=== PATIENT | female | born 1955 | race Caucasian/White ===

== ENCOUNTER 2017-05-23 10:18 | Inpatient (IN) | payer OTHER ==
[2017-04-30 14:23] VITALS: BMI 37.0
--- NOTE | 2017-04-30 14:54 | PAT Medication Instructions ---
Service Date Apr 30, 2017. Current Home Medication List Albuterol Hfa (Ventolin Hfa), 2 PUFFS INH Q6H PRN for PRN Aspirin (Aspirin Ec), 81 MG PO QAM Atorvastatin (Lipitor), 80 MG PO QAM Citalopram Hydrobromide (Celexa), 20 MG PO QAM Fenofibrate (Tricor ), 145 MG PO QAM Fluticasone Propionate (Nasal) (Flonase Allergy Relief), 2 SPRAYS INTNAS QAM PRN for RN Levothyroxine Sodium (Levothyroxine Sodium), 1 TAB PO QAM Lorazepam (Ativan), 1 MG PO BID PRN for RN Miconazole Nitrate (Topical) (Zeasorb-Af), 1 DOSE TOP DAILY Omeprazole (Prilosec), 40 MG PO QAM Phentermine Hcl (Adipex P), 15 MG PO QAM Triamterene/Hctz (Triamterene/Hctz 37.5-25MG), 1 TAB PO QAM [Lidocaine 4%], 1 DOSE TOP PRN Medication Instructions For Your Scheduled Surgery - Hold the following medications 24 hours prior to surgery: Miconazole Nitrate (Topical) (Zeasorb-Af), 1 DOSE TOP DAILY [Lidocaine 4%], 1 DOSE TOP PRN - Hold the following medications the morning of surgery: Phentermine Hcl (Adipex P), 15 MG PO QAM Triamterene/Hctz (Triamterene/Hctz 37.5-25MG), 1 TAB PO QAM Fenofibrate (Tricor ), 145 MG PO QAM - Take the following medications the morning of surgery with a sip of water OTHERWISE NOTHING TO EAT OR DRINK AFTER MIDNIGHT: Aspirin (Aspirin Ec), 81 MG PO QAM Atorvastatin (Lipitor), 80 MG PO QAM Citalopram Hydrobromide (Celexa), 20 MG PO QAM Levothyroxine Sodium (Levothyroxine Sodium), 1 TAB PO QAM Omeprazole (Prilosec), 40 MG PO QAM Albuterol Hfa (Ventolin Hfa), 2 PUFFS INH Q6H PRN for PRN (use if needed; BRING TO HOSPITAL) Lorazepam (Ativan), 1 MG PO BID PRN Fluticasone Propionate (Nasal) (Flonase Allergy Relief), 2 SPRAYS INTNAS QAM PRN - Take the following medications as scheduled the night before surgery: Albuterol Hfa (Ventolin Hfa), 2 PUFFS INH Q6H PRN for PRN Lorazepam (Ativan), 1 MG PO BID PRN If you have any questions please call us at [phone] or [phone] or [phone]
[2017-04-30 15:39] LABS: BASO % 0.4 %; BASO ABS # 0.03 K/uL (0-0.2); EOS % 7.3 %; EOS ABS # 0.62 K/uL (0-0.5); HEMATOCRIT 41.7 % (37-47); HEMOGLOBIN 13.1 g/dL (12.0-16.0); IG# 0.03 K/uL (0.00-0.02); LYMPH ABS # 2.96 K/uL (1.2-3.4); MEAN CELL VOLUME 78.4 fL (80-100); MEAN CORPUSCULAR HEMOGLOBIN 24.6 pg (25-34); MEAN CORPUSCULAR HGB CONC 31.4 g/dl (32-36); MEAN PLATELET VOLUME 10.5 fL (7.4-10.4); MONO % 6.6 %; MONO ABS # 0.56 K/uL (0.11-0.59); NEUT % 50.3 %; NEUT ABS # 4.26 K/uL (1.4-6.5); PLATELET COUNT 518 K/uL (130-400); RED CELL DISTRIBUTION WIDTH SD 45.8 fL (36.4-46.3); WHITE BLOOD COUNT 8.46 K/uL (4.8-10.8)
[2017-04-30 15:46] LABS: PTT PATIENT 24.2 SECONDS (21.0-31.0)
[2017-04-30 15:52] LABS: CALCIUM 9.9 mg/dl (8.5-10.1); POTASSIUM 3.7 mmol/L (3.5-5.1)
[2017-05-23] VITALS (7 sets, daily range): BP systolic 94–133; BP diastolic 60–90; PULSE 58–92; TEMP 36.3–36.7; O2SAT 92–97; Ht 160 cm; Wt 95.0 kg
[~2017-05-23] VITALS: Ht 160 cm; Wt 95.0 kg
[~2017-05-23 10:18] MED LIST: ASPI81TA28 PO; ATOR-26 PO; ATV/1 PO; CEFAZOLIN 2000MG IV PUSH 10 ML IV SCH; CITA20TA9 PO; FENO145T26 PO; FLUT0.15 INTNAS; LACTATED RINGER'S 1000ML 1,000 ML IV SCH; LEVO25TA5 PO; LIDOCAINE 4% TOP; MICO2POW8 TOP; PHEN37.585 PO; PRLSR20 PO; TRIATAB3 PO; VNTHFA/IN INH
[2017-05-23] MEDS ORDERED: EpHEDrine SULFATE INJ 50 MG/ML AMP IV PRN (10:45)
[2017-05-23] MEDS ORDERED: ONDANSETRON INJ 2 MG/ML 2 ML VIAL IV PRN ×2 (10:45→14:30)
[2017-05-23] MEDS ORDERED: HYDROmorphone INJ 2 MG/ML SYR/VIAL IV PRN (10:45)
[2017-05-23] MEDS ORDERED: ATROPINE SULFATE 0.1 MG/ML 5ML SYR IV PRN (10:45)
[2017-05-23] MEDS ORDERED: FLUMAZENIL 0.1 MG/1 ML 10 ML VIAL IV PRN (10:45)
[2017-05-23] MEDS ORDERED: PHENYLEPHRINE 100MCG/ML 5ML SYR IV PRN (10:45)
[2017-05-23] MEDS ORDERED: LABETALOL HCL IV 5 MG/ML 20ML IV PRN (10:45)
[2017-05-23] MEDS ORDERED: MEPERIDINE HCL 25 MG/ML CARP IV PRN (10:45)
[2017-05-23] MEDS ORDERED: NALOXONE HCL 0.4 MG/1 ML VIAL/CARP IV PRN ×3 (10:45→14:30)
[2017-05-23] MEDS ORDERED: FENTANYL CITRATE INJ 50 MCG/1 ML 2 ML VIAL IV PRN (10:45)
[2017-05-23] MEDS ORDERED: FENTANYL CITRATE INJ 50 MCG/1 ML 2 ML VIAL ONE ×3 (11:44→13:20)
[2017-05-23] MEDS ORDERED: MIDAZOLAM HCL 1 MG/ML 2ML VIAL ONE (11:44)
--- NOTE | 2017-05-23 11:54 | History & Physical Bridge Note ---
H&P Re-Evaluation Bridge Note: I have examined the patient, reviewed the History & Physical and in the interval since the performance of the History & Physical I have noted the following changes of clinical significance: No changes noted
--- NOTE | 2017-05-23 11:57 | History and Physical ---
History & Physical Date May 23, 2017. Chief Complaint Back and leg pain History of Present Illness The patient is a 61 year old female with complaints of back and leg pain Additional History Hepatic Disease: No Endocrine Disorder: No Kidney Disease: No Hypertension: Yes Heart Disease: No Bleeding Tendencies: No Infectious Diseases: No Allergies Coded Allergies: Dog Dander (Verified Allergy, Unknown, DOG/CAT DANDER-ITCHY EYES STUFFY, ) Gemfibrozil (Verified Allergy, Unknown, MUSCLE ACHES, 05/23/17) Hydromorphone (Verified Allergy, Unknown, NAUSEA VOMITING, 05/23/17) Rosuvastatin (Verified Allergy, Unknown, ELEVATED ALT, 05/23/17) Sulfamethoxazole w/Trimethoprim (Verified Allergy, Unknown, BURNING RASH, 05/23/17) Terconazole (Verified Allergy, Unknown, SKIN BURNING-WITH VAGINAL CREAM, ) Home Medications Scheduled Aspirin (Aspirin Ec), 81 MG PO QAM Atorvastatin (Lipitor), 80 MG PO QAM Citalopram Hydrobromide (Celexa), 20 MG PO QAM Fenofibrate (Tricor ), 145 MG PO QAM Levothyroxine Sodium (Levothyroxine Sodium), 1 TAB PO QAM Miconazole Nitrate (Topical) (Zeasorb-Af), 1 DOSE TOP DAILY Omeprazole (Prilosec), 40 MG PO QAM Phentermine Hcl (Adipex P), 15 MG PO QAM Triamterene/Hctz (Triamterene/Hctz 37.5-25MG), 1 TAB PO QAM Scheduled PRN Albuterol Hfa (Ventolin Hfa), 2 PUFFS INH Q6H PRN for PRN Fluticasone Propionate (Nasal) (Flonase Allergy Relief), 2 SPRAYS INTNAS QAM PRN for RN Lorazepam (Ativan), 1 MG PO BID PRN for RN Physical Examination Skin: warm/dry, no rash Eyes: normal inspection, EOMI, sclerae normal ENT: normal ENT inspection, pharynx normal Head: normocephalic, atraumatic Neck: supple, no adenopathy, trachea midline Respiratory/Chest: lungs clear, normal breath sounds, no respiratory distress Cardiovascular: regular rate, rhythm, no edema, no murmur Abdomen / GI: normal bowel sounds, non tender Back: normal inspection Extremities: normal inspection, normal range of motion Neurologic/Psych: no motor/sensory deficits, alert, normal reflexes, oriented x 3 Diagnosis Lumbar spinal stenosis with spinal listhesis Plan of Treatment L4 5 decompression and fusion
[2017-05-23] MEDS ORDERED: BACITRACIN 50000 UNIT VIAL ONE (12:10)
[2017-05-23] MEDS ORDERED: BUPIVACAINE 0.5 % 5 MG/1 ML MPF 30ML VIAL ONE (12:10)
[2017-05-23] MEDS ORDERED: BUPIVACAINE/EPINEPHRINE 0.25% 1:200,000 30 ML VIAL ONE (12:12)
[2017-05-23] MEDS ORDERED: HYDROmorphone INJ 2 MG/ML SYR/VIAL ONE (12:41)
[2017-05-23] MEDS ORDERED: RANITIDINE HCL 25 MG/ML INJ ONE (13:02)
[2017-05-23] MEDS ORDERED: METOCLOPRAMIDE HCL INJ 5 MG/ML 2 ML VIAL ONE (13:02)
[2017-05-23] MEDS ORDERED: ONDANSETRON INJ 2 MG/ML 2 ML VIAL ONE ×2 (13:02→13:53)
[2017-05-23] MEDS ORDERED: DEXAMETHASONE SOD INJ 4 MG/ML VIAL ONE (13:02)
[2017-05-23] MEDS ORDERED: LIDOCAINE HCL 2% 2 ML VIAL (20MG/ML) ONE (13:02)
[2017-05-23] MEDS ORDERED: PROPOFOL IV EMULSION 10 MG/ML 20 ML VIAL IV ONE (13:02)
[2017-05-23] MEDS ORDERED: FLOSEAL HEMOSTATIC MATRIX 10ML TOP ONE (13:39)
[2017-05-23] MEDS ORDERED: KETOROLAC TROMETHAMINE 30 MG/ML VIAL ONE (13:53)
[2017-05-23] MEDS ORDERED: ROCURONIUM BROMIDE 10 MG/ML 5 ML VIAL IV ONE (13:53)
--- NOTE | 2017-05-23 13:53 | [facility] Operative Report ---
Operative Report Operative Date May 23, 2017. Pre-Operative Diagnosis Lumbar Spinal Stenosis Post-Operative Diagnosis Lumbar Spinal Stenosis Procedure(s) Performed #1 lumbar decompression medial facetectomies foraminotomies L4 5. #2 posterior spinal fusion L4 5. #3 placement posterior transportation L4 5. #4 interbody fusion L4 5. #5 placement peek cage 12 x 22 mm at L4 5. #6 placement of locally harvested morcellized autograft in the posterior lateral gutters. #7 placement infuse collagen sponge commode Master graft the posterior lateral gutters and ostial amp in the interbody space. 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 After informed consent obtained patient was taken to the operative suite underwent intubation placed in a prone position the [place] table top Samuel frame. All bony prominences were well-padded eyes inspected to ensure no external pressure placed upon them. This point the lumbar spine was prepped and draped in normal sterile fashion. Sharp dissection with the assistance of Bovie cautery was performed onto an exposing the lamina and transverse processes of L4 and L5. From a caudal cephalad fashion a complete laminectomy of L4 was performed including medial facetectomies and foraminotomies addressing severe spinal stenosis. After this is complete pedicle screws were placed in L4 and L5 bilaterally with assistance of fluoroscopy the purposes jonathan placed. Through a transverse foraminal approach a left complete discectomy of L45 was performed and plate created to subcortical bleeding bone and a 12 x 22 mm peek cage filled with ostial amp bone graft tapped in position. The rods were then locked and final position the. The transverse processes of L4 and 5 burred to subcortical bleeding bone. Infuse collagen sponge mask graft locally harvested morcellized autograft was placed the posterior gutters. 15 round SALAZAR drain inserted. Incision then closed with 1 Vicryl fascia 2-0 Vicryl subcutaneous C 4 Monocryl for [place] closure Steri-Strips sterile dressings placed. Patient we can take PACU stable condition. Please note Ricki record was present at the entire procedure involved in patient positioning complex portions of the surgery and final skin closure. I attest to the content of the Intraoperative Record and any orders documented therein. Any exceptions are noted below.
--- NOTE | 2017-05-23 14:00 | DIAGNOSTIC IMAGING REPORT ---
INTRAOPERATIVE LUMBAR SPINE 2 VIEWS CLINICAL HISTORY: L4-L5 DECOMPRESSION AND FUSION COMPARISON STUDY: No previous studies for comparison. FINDINGS: 13 seconds of fluoroscopic time was utilized. 2 intraoperative fluoroscopic spot images are provided for interpretation. There are postsurgical changes of an L4-5 discectomy and interbody fusion. There is posterior pedicle screw fixation. There is a minimal grade 1 spondylolisthesis of L4 on L5. IMPRESSION: Intraoperative radiographs demonstrating L4-5 discectomy, interbody fusion, and posterior pedicle screw fixation. Electronically signed by: Hola Hull M.D. 05/23/2017 1:59 PM Dictated Date/Time: 05/23/2017 1:58 PM
[2017-05-23] MEDS ORDERED: DO NOT ADMINISTER FLU VACCINE PRN (14:30)
[2017-05-23] MEDS ORDERED: BISACODYL 10 MG SUPP PR PRN (14:30)
[2017-05-23] MEDS ORDERED: ACETAMINOPHEN IV 100 ML IV PRN (14:30)
[2017-05-23] MEDS ORDERED: LORAZEPAM 0.5 MG TAB PO PRN (14:30)
[2017-05-23] MEDS ORDERED: FAMOTIDINE 20 MG TAB PO PRN (14:30)
[2017-05-23] MEDS ORDERED: MAGNESIUM HYDROXIDE SUSP 30 ML UDC PO PRN (14:30)
[2017-05-23] MEDS ORDERED: SOD PHOSPHATE/SOD BIPHOSPHATE ENEMA 132 ML BTL PR PRN (14:30)
[2017-05-23] MEDS ORDERED: hydrOXYzine HCL 25 MG TAB PO PRN (14:30)
[2017-05-23] MEDS ORDERED: LORAZEPAM INJ 0.5 MG in SYRINGE 0 ML IV PRN (14:30)
[2017-05-23] MEDS ORDERED: FLUTICASONE PROPIONATE NA SPR 16 GM BTL NAE PRN (14:30)
[2017-05-23] MEDS ORDERED: MoRPHine SULFATE 1 MG/ML 50 ML PCA CASS IV PRN (14:30)
[2017-05-23] MEDS ORDERED: ALBUTEROL HFA 8 GM INHALER INH PRN (14:30)
[2017-05-23] MEDS ORDERED: DO NOT ADMINISTER PNEUMOCOCCAL VACCINE PRN (14:30)
[2017-05-23] MEDS ORDERED: ALUMINUM/MAGNESIUM SUSP 30 ML UDC PO PRN (14:30)
[2017-05-23] MEDS ORDERED: METOCLOPRAMIDE HCL INJ 5 MG/ML 2 ML VIAL IV PRN (14:30)
[2017-05-23] MEDS ORDERED: PROMETHAZINE HCL INJ 12.5 MG in SODIUM CHLORIDE 0.9% 50ML 50 ML IV PRN (14:30)
[2017-05-23] MEDS ORDERED: SODIUM CHLORIDE 0.9% 1000ML 1,000 ML IV SCH (14:30)
[2017-05-23] MEDS ORDERED: METOPROLOL TARTRATE 1 MG/ML VIAL IV STA (14:43)
[2017-05-23] MEDS ORDERED: METOPROLOL TARTRATE 1 MG/ML VIAL ONE (14:43)
[2017-05-23] MEDS ORDERED: MoRPHine SULFATE 1 MG/ML 50 ML PCA CASS ONE (14:48)
--- NOTE | 2017-05-23 14:50 | Anesthesiology Progress Note ---
Anesthesia Post Op Note Date & Time May 23, 2017 at 14:48 Vital Signs Pain Intensity: 0 Vital Signs Past 12 Hours Date Time Temp Pulse Resp B/P (MAP) Pulse Ox O2 Delivery O2 Flow Rate FiO2 05/23/17 14:45 100 152/95 05/23/17 14:40 100 16 152/95 94 Oxymask 10 05/23/17 14:30 95 16 153/82 98 Oxymask 10 05/23/17 14:20 71 16 147/91 95 Oxymask 10 05/23/17 14:11 36.6 84 14 145/97 94 Oxymask 10 05/23/17 10:41 36.7 92 18 133/90 97 Room Air Notes Mental Status: alert / awake / arousable, participated in evaluation Pt Amnestic to Procedure: Yes Nausea / Vomiting: adequately controlled Pain: adequately controlled Airway Patency, RR, SpO2: stable & adequate BP & HR: stable & adequate Hydration State: stable & adequate Anesthetic Complications: no major complications apparent The patient did well during surgery. In PACU, her HR was in the 100s so she was given metoprolol which brought it down to the 80s. Other vitals signs are stable. She has sleep apnea and will use her CPAP machine on the floor.
[2017-05-23] MEDS ORDERED: NURSING VERBAL MED ORDER ONE ×2 (15:00→22:30)
[2017-05-23] MEDS: SODIUM CHLORIDE 0.9% 1000ML 1,000 ML IV SCH ×2 (16:00→20:00)
[2017-05-23] MEDS: CEFAZOLIN IV 2,000 MG in SYRINGE 0 ML IV SCH (20:00)
[2017-05-23] MEDS: DOCUSATE SODIUM/SENNA 50/8.6MG TAB PO SCH (21:49)
[2017-05-23] MEDS ORDERED: COUGH DROP (SUGAR FREE) LOZ 24 LOZ/1 BOX ONE (21:52)
[2017-05-23] MEDS: DEXAMETHASONE INJ 6 MG in SYRINGE 0 ML IV SCH (21:57)
[2017-05-23] MEDS ORDERED: NURSING DECISION MEDICATION ORDER SCH (22:00)
[2017-05-23] MEDS ORDERED: COUGH DROP (SUGAR FREE) LOZ 24 LOZ/1 BOX PO PRN (22:15)
[2017-05-24] MEDS: SODIUM CHLORIDE 0.9% 1000ML 1,000 ML IV SCH (02:07)
[2017-05-24 03:54] VITALS: BP 155/81; PULSE 78; TEMP 36.7; O2SAT 94
[2017-05-24] MEDS: CEFAZOLIN IV 2,000 MG in SYRINGE 0 ML IV SCH (03:56)
[2017-05-24] MEDS: DEXAMETHASONE INJ 6 MG in SYRINGE 0 ML IV SCH ×2 (05:40→14:51)
[2017-05-24] MEDS: LEVOTHYROXINE 25 MCG TAB PO SCH (05:40)
[2017-05-24] MEDS ORDERED: DC PCA ONE (06:00)
[2017-05-24 06:01] LABS: HEMATOCRIT 36.6 % (37-47); HEMOGLOBIN 10.8 g/dL (12.0-16.0); IG# 0.04 K/uL (0.00-0.02); LYMPH % 8.9 %; LYMPH ABS # 1.08 K/uL (1.2-3.4); MEAN CELL VOLUME 80.4 fL (80-100); MEAN CORPUSCULAR HEMOGLOBIN 23.7 pg (25-34); MEAN CORPUSCULAR HGB CONC 29.5 g/dl (32-36); MEAN PLATELET VOLUME 10.5 fL (7.4-10.4); MONO % 3.1 %; MONO ABS # 0.38 K/uL (0.11-0.59); NEUT % 87.7 %; NEUT ABS # 10.61 K/uL (1.4-6.5); PLATELET COUNT 375 K/uL (130-400); RED CELL DISTRIBUTION WIDTH CV 16.5 % (11.5-14.5); RED CELL DISTRIBUTION WIDTH SD 48.7 fL (36.4-46.3); WHITE BLOOD COUNT 12.11 K/uL (4.8-10.8)
[2017-05-24 06:27] LABS: CALCIUM 8.5 mg/dl (8.5-10.1); CREATININE 0.89 mg/dl (0.60-1.20)
[2017-05-24 07:52] VITALS: BP 111/71; PULSE 53; TEMP 36.6; O2SAT 96
[2017-05-24] MEDS ORDERED: NURSING VERBAL MED ORDER ONE ×2 (08:30→09:00)
[2017-05-24] MEDS: OXYCODONE HCL IR 5 MG TAB (IMMEDIATE RELEASE) PO PRN ×4 (08:41→21:23)
[2017-05-24] MEDS: ATORVASTATIN 40 MG TAB PO SCH (08:42)
[2017-05-24] MEDS: ASPIRIN 81 MG ECTAB PO SCH (08:42)
[2017-05-24] MEDS: CITALOPRAM 20 MG TAB PO SCH (08:42)
[2017-05-24] MEDS: PANTOprazole SOD 40 MG TAB PO SCH (08:43)
[2017-05-24] MEDS: TRIAMTERENE/HCTZ 37.5/25MG TAB PO SCH (08:43)
[2017-05-24] MEDS: FENOFIBRATE 145 MG TAB PO SCH (08:44)
[2017-05-24 10:46] VITALS: BP 112/73; PULSE 62; O2SAT 97
[2017-05-24] MEDS: ACETAMINOPHEN 500 MG TAB PO PRN (11:03)
[2017-05-24 11:59] VITALS: BP 123/73; PULSE 59; TEMP 36.4; O2SAT 95
--- NOTE | 2017-05-24 12:35 | PROGRESS NOTE ---
DATE: 05/24/2017 SUBJECTIVE: Ms. Edmonds is here postoperative day #1, status post lumbar decompression and fusion at L4-L5. She is doing relatively well this morning. She has some pain in the back that is controlled with oral pain medication. She states the pain medication does not seem to last as long as she would like, however. She has been up and walking and seems to be moving more independently than she anticipated. She is not having any leg symptoms at this point. She denies any other numbness, tingling or paresthesias. PHYSICAL EXAMINATION: VITAL SIGNS: She is afebrile. Vital signs are stable. Hematocrit today is 36.6. Her SALAZAR drain placed out 100 on this shift and 100 on the last as well. ABDOMEN: Soft, nontender. EXTREMITIES: Calves are soft and nontender. Dressing is clean, dry, and intact. ASSESSMENT: The patient is stable postoperative day #1. PLAN: At this point, we are going to continue with ambulation and gait training through physical therapy, continue pain control measures as well. She is going to change positions frequently. We will see her tomorrow to determine if she is safe for home discharge at that point. Otherwise, we will keep her until Friday.
[2017-05-24 15:20] VITALS: BP 113/68; PULSE 62; TEMP 36.5; O2SAT 95
[2017-05-24] MEDS: DOCUSATE SODIUM/SENNA 50/8.6MG TAB PO SCH (21:23)
[2017-05-24 23:40] VITALS: BP 110/71; PULSE 60; TEMP 36.4; O2SAT 98
[2017-05-25] MEDS: OXYCODONE HCL IR 5 MG TAB (IMMEDIATE RELEASE) PO PRN ×4 (02:51→18:34)
[2017-05-25] MEDS: POLYETHYLENE (MIRALAX) 17 GM PACK PO SCH ×3 (06:07→17:54)
[2017-05-25] MEDS: LEVOTHYROXINE 25 MCG TAB PO SCH (06:07)
[2017-05-25 06:12] VITALS: BP 130/74; PULSE 53; TEMP 36.6; O2SAT 97
[2017-05-25 07:25] VITALS: O2SAT 97
[2017-05-25] MEDS: ATORVASTATIN 40 MG TAB PO SCH (09:00)
[2017-05-25] MEDS: FENOFIBRATE 145 MG TAB PO SCH (09:00)
[2017-05-25] MEDS: ASPIRIN 81 MG ECTAB PO SCH (09:00)
[2017-05-25] MEDS: TRIAMTERENE/HCTZ 37.5/25MG TAB PO SCH (09:00)
[2017-05-25] MEDS: CITALOPRAM 20 MG TAB PO SCH (09:00)
[2017-05-25] MEDS: PANTOprazole SOD 40 MG TAB PO SCH (09:00)
[2017-05-25 09:44] VITALS: BP 126/76; PULSE 67; O2SAT 98
[2017-05-25 15:21] VITALS: BP 99/62; PULSE 58; TEMP 35.7; O2SAT 96
[2017-05-25] MEDS: ACETAMINOPHEN 500 MG TAB PO PRN (15:47)
[2017-05-25] MEDS: DOCUSATE SODIUM/SENNA 50/8.6MG TAB PO SCH (20:56)
[2017-05-25 23:15] VITALS: O2SAT 96
[2017-05-25 23:30] VITALS: BP 114/80; PULSE 57; TEMP 36.8; O2SAT 98
[2017-05-26] MEDS: OXYCODONE HCL IR 5 MG TAB (IMMEDIATE RELEASE) PO PRN ×2 (01:59→07:57)
[2017-05-26] MEDS: POLYETHYLENE (MIRALAX) 17 GM PACK PO SCH ×3 (05:54→12:00)
[2017-05-26] MEDS: LEVOTHYROXINE 25 MCG TAB PO SCH (05:55)
[2017-05-26] MEDS: ACETAMINOPHEN 500 MG TAB PO PRN (05:59)
[2017-05-26 06:19] VITALS: BP 112/67; PULSE 63; TEMP 36.4; O2SAT 98
--- NOTE | 2017-05-26 07:38 | Anesthesiology Progress Note ---
Anesthesia Post Op Note Date & Time May 26, 2017 at 07:38 Vital Signs Vital Signs Past 12 Hours Date Time Temp Pulse Resp B/P (MAP) Pulse Ox O2 Delivery O2 Flow Rate FiO2 05/26/17 06:19 36.4 63 18 112/67 (82) 98 Room Air 05/25/17 23:30 36.8 57 18 114/80 (91) 98 BiPAP 05/25/17 23:15 96 Room Air Notes Mental Status: alert / awake / arousable, participated in evaluation Pt Amnestic to Procedure: Yes Nausea / Vomiting: adequately controlled Pain: adequately controlled Airway Patency, RR, SpO2: stable & adequate BP & HR: stable & adequate Hydration State: stable & adequate Anesthetic Complications: no major complications apparent
[2017-05-26 07:43] VITALS: BP 108/72; PULSE 74; TEMP 36.7; O2SAT 96
[2017-05-26] MEDS ORDERED: RXC5 PO (07:49)
--- NOTE | 2017-05-26 07:50 | Discharge Instructions ---
Discharge Instructions Date of Service May 26, 2017. Admission Reason for Admission: Spinal Stenonis Discharge Discharge Diagnosis / Problem: lumbar stenosis Discharge Goals Goal(s): Improve function Activity Recommendations Activity Limitations: per Instructions/Follow-up section . Instructions / Follow-Up Instructions / Follow-Up ACTIVITY RECOMMENDATIONS: SELF CARE INSTRUCTIONS AFTER CERVICAL FUSIONS 1. No smoking. Smoking drastically decreases the chance of a solid fusion. 2. No bending, lifting more than 5 pounds, or twisting (roll like a log when turning in bed). 3. You may shower 3 days after surgery. Thoroughly dry wound. Do not soak in the tub. 4. Cervical collar: Must be worn at all times including sleeping. You may remove the brace only to bath, eat and if you are sitting in a recliner. 5. Please walk as much as you can for exercise. Gradually increase the distance that you walk as your endurance increases. SPECIAL CARE INSTRUCTIONS: VERY IMPORTANT TO READ AND REVIEW A. Do not take any anti-inflammatory medications (i.e. Indocin, Advil, Aspirin, Naprosyn, Aleve, Motrin, etc.) as these may inhibit the chance of a solid fusion. Tylenol is okay to take. B. Your surgical incision has been closed with a cosmetic suture under the skin that will dissolve in about 6 weeks. In 14 days, you can use a pair of clean scissors and cut the suture that is left outside of the skin at the ends of your incision. C. Complications are uncommon, but please contact us if you have any signs or symptoms of: 1. wound infection (fever higher than 102.5 degrees F, redness, separation of wound, drainage, or increasing pain from the incision) 2. blood clots in legs (pain, swelling, redness and warmth in legs) 3. urinary tract infection (fever higher than 102.5 degrees, burning upon urination or increased frequency of urination) 4. nerve problems (inability to walk on your toes or heels, numbness, loss of bowel or bladder control) 5. any other symptoms that concern you. D. Please call the office at if you have any concerns or questions about your operation or recovery. MANAGING PAIN AFTER SPINAL SURGERY 1. Narcotic medication is intended for short-term use and will be provided for surgical pain. Surgical pain usually lasts for a period of 4-6 weeks. Narcotic medication includes Percocet, Vicodin, Darvocet, Tylenol #3 or Lortab. 2. Longer-term pain is more appropriately treated with non-narcotic medication such as Tylenol ES. 3. Muscle spasm is not appropriately treated with narcotics. Muscle relaxers such as Soma, Flexeril or Skelaxin can be used along with Tylenol ES. 4. Remember that we all live with some "aches and pains". This is not unusual or uncommon after an injury or as we get older. 5. We will provide appropriate medication within the normal guidelines of their prescribed use. We will also be very cautious and aware of potential abuse and extended duration of patients' medication needs. 6. Please allow 2-3 days to process refills. Prescriptions will not be mailed but must be picked up at the office. FOLLOW UP VISIT: Keep your scheduled follow-up appointment. Any questions, please call the office at . Current Hospital Diet Patient's current hospital diet: Regular Diet Discharge Diet Recommended Diet: Regular Diet Procedures Procedures Performed: #1 lumbar decompression medial facetectomies foraminotomies L4 5. #2 posterior spinal fusion L4 5. #3 placement posterior transportation L4 5. #4 interbody fusion L4 5. #5 placement peek cage 12 x 22 mm at L4 5. #6 placement of locally harvested morcellized autograft in the posterior lateral gutters. #7 placement infuse collagen sponge commode Master graft the posterior lateral gutters and ostial amp in the interbody space. Pending Studies Studies pending at discharge: no Medical Emergencies . Who to Call and When: Medical Emergencies: If at any time you feel your situation is an emergency, please call 911 immediately. . Non-Emergent Contact Non-Emergency issues call your: Primary Care Provider . "Provider Documentation" section prepared by Jian Avery. . VTE Core Measure Inpt VTE Proph given/why not?: Micki Reese, SCD's
[2017-05-26] MEDS: ATORVASTATIN 40 MG TAB PO SCH (07:58)
[2017-05-26] MEDS: ASPIRIN 81 MG ECTAB PO SCH (07:58)
[2017-05-26] MEDS: CITALOPRAM 20 MG TAB PO SCH (07:58)
[2017-05-26] MEDS: PANTOprazole SOD 40 MG TAB PO SCH (07:59)
[2017-05-26] MEDS: FENOFIBRATE 145 MG TAB PO SCH (07:59)
[2017-05-26] MEDS: TRIAMTERENE/HCTZ 37.5/25MG TAB PO SCH (07:59)
[2017-05-26 08:22] VITALS: O2SAT 96
[2017-05-26 09:37] VITALS: BP 108/72; PULSE 74; TEMP 36.7; O2SAT 96
--- NOTE | 2017-05-26 10:22 | Discharge Summary ---
Orthopedic Discharge Summary Admission Date/Reason May 23, 2017 at 12:00 Spinal Stenonis. Discharge Date/Disposition May 26, 2017 Home Diagnosis Principal Diagnosis: Lumbar spinal stenosis Admission Physical Exam As per Admitting History & Physical. Hospital Course Patient underwent lumbar decompression fusion tolerated this well as taken to the orthopedic 4 postop we. Postoperative day #1 she was up and amatory progressed to postoperative day #2. Postoperative day #3 SALAZAR drain decreased properly. Pain well controlled. Socially discharge home. Discharge orders and instructions can be found the chart for further review. Discharge Instructions Please refer to the electronic Patient Visit Report (Discharge Instructions) for additional information.
== END 2017-05-26 13:01 | disposition home or self-care (01) | DRG 455 ==
LOC: C.ACU 10:18 → C.3E 12:00 → ENRESERV 15:03
PROVIDERS: ADMIT Orthopaedic Surgery Orthopaedic Surgery of the Spine; ATTEND Orthopaedic Surgery Orthopaedic Surgery of the Spine
PROC: 0ST20ZZ Resection of Lumbar Vertebral Disc, Open Approach (ICD-10-PCS; principal; 2017-05-23 12:45)
PROC: 0SG00AJ Fusion of Lumbar Vertebral Joint with Interbody Fusion Device, Posterior Approach, Anterior Column, Open Approach (ICD-10-PCS; principal; 2017-05-23 12:45)
PROC: 0SG0071 Fusion of Lumbar Vertebral Joint with Autologous Tissue Substitute, Posterior Approach, Posterior Column, Open Approach (ICD-10-PCS; principal; 2017-05-23 12:45)
DX: M48.061 Spinal stenosis, lumbar region without neurogenic claudication (principal); M43.16 Spondylolisthesis, lumbar region; I10 Essential (primary) hypertension; E78.5 Hyperlipidemia, unspecified; G47.33 Obstructive sleep apnea (adult) (pediatric); Z79.899 Other long term (current) drug therapy; Z79.82 Long term (current) use of aspirin

== ENCOUNTER → 2017-07-23 | Outpatient (CLI) | payer OTHER ==
[~2017-07-23] MED LIST changes: -CEFAZOLIN 2000MG IV PUSH 10 ML IV SCH; -LACTATED RINGER'S 1000ML 1,000 ML IV SCH; -LIDOCAINE 4% TOP; +RXC5 PO
== END | disposition home or self-care (01) ==
LOC: C.LABMFLN 17:45
PROVIDERS: ATTEND Physician Assistant
DX: R35.0 Frequency of micturition (principal)

== ENCOUNTER → 2017-07-30 | Outpatient (CLI) | payer OTHER ==
[2017-07-30 12:24] LABS: BASO % 0.3 %; BASO ABS # 0.02 K/uL (0-0.2); EOS % 7.4 %; EOS ABS # 0.59 K/uL (0-0.5); HEMATOCRIT 44.2 % (37-47); HEMOGLOBIN 13.5 g/dL (12.0-16.0); IG# 0.03 K/uL (0.00-0.02); LYMPH % 29.3 %; LYMPH ABS # 2.33 K/uL (1.2-3.4); MEAN CELL VOLUME 79.4 fL (80-100); MEAN CORPUSCULAR HEMOGLOBIN 24.2 pg (25-34); MEAN CORPUSCULAR HGB CONC 30.5 g/dl (32-36); MEAN PLATELET VOLUME 10.9 fL (7.4-10.4); MONO % 7.8 %; MONO ABS # 0.62 K/uL (0.11-0.59); NEUT % 54.8 %; NEUT ABS # 4.37 K/uL (1.4-6.5); PLATELET COUNT 517 K/uL (130-400); RED CELL DISTRIBUTION WIDTH CV 16.1 % (11.5-14.5); RED CELL DISTRIBUTION WIDTH SD 46.7 fL (36.4-46.3); WHITE BLOOD COUNT 7.96 K/uL (4.8-10.8)
[2017-07-30 13:18] LABS: ALBUMIN 3.7 gm/dl (3.4-5.0); ALT/SGPT 40 U/L (12-78); BLOOD UREA NITROGEN 21 mg/dl (7-18); CALCIUM 9.9 mg/dl (8.5-10.1); CARBON DIOXIDE 27 mmol/L (21-32); CHOLESTEROL 207 mg/dl (0-200); CREATININE 0.78 mg/dl (0.60-1.20); GLUCOSE 110 mg/dl (70-99); POTASSIUM 3.4 mmol/L (3.5-5.1); SODIUM 141 mmol/L (136-145)
[2017-07-30 13:28] LABS: ALKALINE PHOSPHATASE 128 U/L (45-117); AST/SGOT 23 U/L (15-37); LDL CHOLESTEROL CALCULATED 128 mg/dl; TOTAL PROTEIN 7.5 gm/dl (6.4-8.2)
== END | disposition home or self-care (01) ==
LOC: C.LABMFLN 08:24
DX: I10 Essential (primary) hypertension (principal); K21.9 Gastro-esophageal reflux disease without esophagitis; E78.5 Hyperlipidemia, unspecified; E03.9 Hypothyroidism, unspecified

== ENCOUNTER → 2017-08-14 | Outpatient (CLI) | payer OTHER ==
[2017-08-14 14:10] LABS: POTASSIUM 3.9 mmol/L (3.5-5.1)
== END | disposition home or self-care (01) ==
LOC: C.LABMFLN 10:02
PROVIDERS: ATTEND Family Medicine
DX: E87.6 Hypokalemia (principal); R74.8 Abnormal levels of other serum enzymes

== ENCOUNTER → 2017-10-02 | Outpatient (CLI) | payer OTHER | END | disposition home or self-care (01) | LOC: C.LABMFLN 09:14 | PROVIDERS: ATTEND Family Medicine | DX: R35.0 Frequency of micturition (principal) ==